=== PATIENT | female | born 2000 | race Caucasian/White ===

== ENCOUNTER → 2021-10-02 | Day surgery (SDC) | payer BC ==
[~2021-10-02] MED LIST: FENTANYL CITRATE/PF 100MCG/2 ML INJ ONE; LIDOCAINE HCL 2% LOCAL INJ 5 ML SDV VIAL INJ ONE; METOCLOPRAMIDE HCL 10 MG/2ML VIAL ONE; MIDAZOLAM HCL 5 MG/ML VIAL ONE; PROPOFOL IV EMULSION 10 MG/ML 20 ML VIAL ONE
[2021-10-02 15:00] VITALS: BP 101/70
== END | disposition home or self-care (01) ==
LOC: OR 12:01
PROVIDERS: ATTEND Internal Medicine Gastroenterology
DX: K29.70 Gastritis, unspecified, without bleeding (principal); K20.90 Esophagitis, unspecified without bleeding; R63.0 Anorexia; F41.9 Anxiety disorder, unspecified; Z20.822 Contact with and (suspected) exposure to COVID-19; Z87.19 Personal history of other diseases of the digestive system
CPT/HCPCS: 43239; 81025; C9113; J2001; J2250; J2704; J2765; J3010; U0002